=== PATIENT | female | born 2000 | race Two or more races ===

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

== ENCOUNTER 2020-10-22 17:47 | Emergency (ER) | payer OTHER ==
[~2020-10-22] VITALS: Ht 167.6 cm; Wt 82.1 kg
--- NOTE | 2020-10-22 18:54 | NUR ---
Patient awake alert noted able to ambulated to bathroom urine obtained and send to lab
[2020-10-22 19:22] LABS: BILIRUBIN,URINE SMALL (NEGATIVE); COLOR,URINE YELLOW (YELLOW); LEUKOCYTE ESTERASE ,URINE LARGE (NEGATIVE); NITRITE, URINE POSITIVE (NEGATIVE); PROTEIN,URINE TRACE mg/dl (NEGATIVE); UGLUCOSE NEGATIVE (NEGATIVE); UROBILINOGEN,URINE 0.2 EU/dL (0.2)
[2020-10-22 19:43] LABS: BACTERIA,URINE 4+ /HPF (None Seen); MUCUS,URINE Few /LPF (None Seen); WBC,URINE 21-50 /HPF (0-3)
[2020-10-22 19:50] LABS: BASOPHILS # (AUTO) 0.1 /CMM (0.0-0.2); BASOPHILS % (AUTO) 0.4 % (0.0-2.0); EOSINOPHILS % (AUTO) 0.4 % (0.0-6.0); HEMATOCRIT 41 % (33-45); HEMOGLOBIN 14.2 g/dL (11.5-14.8); LYMPHOCYTES # (AUTO) 2.8 /CMM (0.8-4.8); LYMPHOCYTES % (AUTO) 18.9 % (20.0-44.0); MEAN CORPUSCULAR HGB CONC 34 g/dl (31.0-36.0); MEAN CORPUSCULAR VOLUME 90 fL (82-100); MONOCYTES # (AUTO) 1.2 /CMM (0.1-1.30); MONOCYTES % (AUTO) 8.5 % (2.0-12.0); NEUTROPHILS # (AUTO) 10.5 /CMM (1.8-8.9); NEUTROPHILS % (AUTO) 71.8 % (43.0-81.0); PLATELET COUNT (AUTO) 312 /CMM (150-450); RED BLOOD CELL COUNT(AUTO) 4.58 MIL/uL (4.0-5.2); WHITE BLOOD COUNT (AUTO) 14.6 K/uL (4.3-11.0)
[2020-10-22] MEDS ORDERED: LORAZEPAM 1 MG TABLET ONE ×2 (19:56→21:19)
[2020-10-22] MEDS ORDERED: LORAZEPAM 1 MG TABLET PO ONE ×2 (20:00→21:00)
[2020-10-22 20:23] LABS: CALCIUM, SERUM 9.9 mg/dL (8.5-10.1); CARBON DIOXIDE 23 mmol/L (21-32); CHLORIDE 101 mmol/L (98-107); CREATININE 0.9 mg/dL (0.6-1.3); GLUCOSE 82 mg/dL (74-106); POTASSIUM 3.1 mmol/L (3.5-5.1); SODIUM SERUM 139 mmol/L (136-145); UREA NITROGEN, BLOOD 11 mg/dL (7-18)
[2020-10-22 20:31] LABS: ACETAMINOPHEN 0 ug/ml (10-30); ALANINE AMINOTRANSFERASE 36 U/L (12-78); ALBUMIN 4.3 g/dL (3.4-5.0); ALCOHOL, BLOOD < 3 mg/dL (0-0); ALKALINE PHOSPHATASE 86 U/L (46-116); ASPARTATE AMINOTRANSFERASE 40 U/L (15-37); BILIRUBIN,DIRECT 0.2 mg/dL (0.0-0.2); BILIRUBIN,TOTAL 1.2 mg/dL (0.2-1.0)
[2020-10-22] MEDS ORDERED: OLANZAPINE 10 MG VIAL IM ONE ×2 (20:51→21:00)
[2020-10-22] MEDS ORDERED: IV NS 0.9% 1,000 ML BAG IV ONE (22:00)
[2020-10-22] MEDS ORDERED: LORAZEPAM INJ 2 MG/ML VIAL IV ONE ×2 (22:00→23:00)
[2020-10-22] MEDS ORDERED: LORAZEPAM INJ 2 MG/ML VIAL ONE ×2 (22:08→23:46)
[2020-10-23] MEDS ORDERED: diphenhydrAMINE HCL 50 MG/ML VIAL ONE (00:29)
[2020-10-23] MEDS ORDERED: HALOPERIDOL LACTATE INJ 5 MG/ML VIAL ONE (00:29)
[2020-10-23] MEDS ORDERED: HALOPERIDOL LACTATE INJ 5 MG/ML VIAL IM ONE (00:30)
[2020-10-23] MEDS ORDERED: diphenhydrAMINE HCL 50 MG/ML VIAL IV ONE (00:30)
--- NOTE | 2020-10-23 04:31 | NUR ---
SPOKE WITH SAMANTA FROM [facility]. UNABLE TO ACCEPT PATIENT D/T NO SI/HI COMPLAINT. MD AWARE
--- NOTE | 2020-10-23 04:39 | NUR ---
pt was assisted with a bed sánchez. remained clean nad dry and comfortable. will cont to monitor
--- NOTE | 2020-10-23 07:42 | NUR ---
PATIENT ASLEEP BUT EASILY AROUSABLE. PATIENT STS SHE'S FEELING DEPRESSED. NO SUICIDAL PLANS AT THIS TIME, AND WANTS TO GO [facility]OL[facility] AT A [facility].
--- NOTE | 2020-10-23 08:10 | NUR ---
PATIENT WENT TO RESTROOM, AMBULATORY WITH STEADY GAIT. LINEN SHEET, CHANGED.
--- NOTE | 2020-10-23 09:20 | NUR ---
PER DEVIN FROM [facility], PATIENT DENIED ADMISSION, DOES NOT MEET THE CRITERIA.
--- NOTE | 2020-10-23 09:37 | NUR ---
THE PATIENT ALERT AND ORIENTED TO X. WITH EPISODES OF FORGETFULLNESS. DENIES PAIN. IN ROOM AIR AND DENIES SOB. RESPIRATION REGULAR AND UNLABORED. WILL CONTINUE TO MONITOR THE PATIENT.
[2020-10-23] MEDS ORDERED: CIPROFLOXACIN HCL 500 MG TABLET PO ONE (10:00)
[2020-10-23] MEDS ORDERED: CIPROFLOXACIN HCL 500 MG TABLET ONE (10:03)
--- NOTE | 2020-10-23 10:17 | NUR ---
RECEIVED A CALL FROM BRITTNEY MORALES FROM [facility] [phone] EXT [phone]
--- NOTE | 2020-10-23 10:44 | NUR ---
Dry Cell Assembly Machine Tender consult: financial services sales representative consult requested for substance use. Patient is a 20-year-old, female. SW met with patient at her bedside in the emergency department. Patient was alert and oriented x4. Patient presented malodorous, irritable, and lethargic. Per chart, patient was brought in by her father on 10/22/20 for a medical clearance. Patient stated that she is currently living with her father, Andriy Sarmiento, at [address] [place] [address]; [phone]. Upon consult, patient stated, Im tired, can I just sleep? Patient presented irritable and was resistant to speaking with SW. SW asked patient if she currently has a source of income and patient stated that she currently has no income. Patient receives some support from her father. SW asked patient about her history of substance use and patient stated, I dont want to talk about it. Per patients toxicology report patient is positive for amphetamine and cannabinoids. Patient stated that she has a history of Depression and Anxiety. Patient stated that she is currently not feeling suicidal or homicidal. SW provided substance use resources to the patient and patient accepted the resources stating that she would follow up independently. Patient stated that she may follow up with a sober living facility. Patient requested voluntary inpatient psychiatric hospitalization. Per patients chart, patient was denied from [facility]. SW will follow up with field coordinator, Nelson, , from [facility] to locate alternative options inpatient psychiatric hospitalization. PLAN: SW will follow up to locate alternative options for inpatient psychiatric hospitalization. SW will remain available as needed. Substance use resources provided included: [facility] Substance Abuse Self-Helpline ([facility]) ; [facility] [address] [facility] [address] ; [facility] [address] [facility] [address] ; [facility] [address] [facility] [address] ; [facility] [address] [facility] [address] ; [facility] [address] [facility] [address] ; [facility]; [facility] [place]; [facility] [place]; Alcoholics Anonymous -[facility]
--- NOTE | 2020-10-23 10:44 | NUR ---
[facility] AT BED[facility]IDE.
--- NOTE | 2020-10-23 17:47 | NUR ---
CALL BACK FROM [facility] FAXED TO [phone] REQUESTED
--- NOTE | 2020-10-23 17:48 | NUR ---
REPORT TO BE CALLED AT [phone]
--- NOTE | 2020-10-23 17:55 | NUR ---
CALL BACK FROM LORE,ACCEPTED BY DR KENNY TO [facility]
--- NOTE | 2020-10-23 17:57 | NUR ---
REPORT TO [phone]
--- NOTE | 2020-10-23 18:00 | NUR ---
[facility]ORT [facility] ETA 45 MINS PER JIMBO
--- NOTE | 2020-10-23 18:42 | NUR ---
THE PATIENT GOT TRANSFERED TO [facility] PER ARRANGEMENT AND INSTABLE CONDITION.
[2020-10-23 18:45] VITALS: BP 103/61
== END 2020-10-23 18:45 ==
LOC: ER 17:51
DX: R45.1 Restlessness and agitation (principal); F15.10 Other stimulant abuse, uncomplicated; N39.0 Urinary tract infection, site not specified; R00.0 Tachycardia, unspecified; Z20.822 Contact with and (suspected) exposure to COVID-19; Z82.49 Family history of ischemic heart disease and other diseases of the circulatory system; J45.909 Unspecified asthma, uncomplicated; F31.9 Bipolar disorder, unspecified; F17.200 Nicotine dependence, unspecified, uncomplicated; F43.10 Post-traumatic stress disorder, unspecified
CPT/HCPCS: 36415; 71045; 80048; 80076; 80143; 80307; 80320; 81001; 84484; 84703; 85025; 87086; 87426; 93005; 96361; 96372 ×2; 96374; 96376 ×2; 99285; C9803; J1200; J1630; J2060 ×2; J3490; J7030; G0480

== ENCOUNTER 2021-01-02 10:54 | Emergency (ER) | payer OTHER ==
[~2021-01-02] VITALS: Ht 167.6 cm; Wt 83.9 kg
--- NOTE | 2021-01-02 11:12 | NUR ---
patient came in to the er c/o anxiety, withdrawing from meth and inahalants, on room air, breathing evenly and unlabored. Connected to the monitor and pulse ox. Denies SI/HI. kept comfortable, will continue to monitor accordingly.
[2021-01-02] MEDS ORDERED: LORAZEPAM 1 MG TABLET ONE (11:20)
[2021-01-02] MEDS ORDERED: LORAZEPAM 1 MG TABLET PO ONE (11:30)
[2021-01-02 11:48] VITALS: BP 118/71
--- NOTE | 2021-01-02 11:49 | NUR ---
Patient given written and verbal discharge instructions. Patient verbalizes understanding of instructions. Patient is ambulatory with steady gait. Refuses offer of long-term placement. Patient given list of available shelters in surrounding area.
== END 2021-01-02 11:49 | disposition home or self-care (01) ==
LOC: ER 10:54
DX: F19.980 Other psychoactive substance use, unspecified with psychoactive substance-induced anxiety disorder (principal); F41.9 Anxiety disorder, unspecified; F18.10 Inhalant abuse, uncomplicated; F15.10 Other stimulant abuse, uncomplicated; J45.909 Unspecified asthma, uncomplicated; F43.10 Post-traumatic stress disorder, unspecified; F32.9 Major depressive disorder, single episode, unspecified; F17.200 Nicotine dependence, unspecified, uncomplicated; Z59.0 Homelessness

== ENCOUNTER 2021-02-15 20:33 | Emergency (ER) | payer OTHER ==
[~2021-02-15] VITALS: Ht 167.6 cm; Wt 81.6 kg
[2021-02-15] MEDS ORDERED: NALO4SPR NS (22:26)
[2021-02-15 22:45] LABS: BASOPHILS % (AUTO) 0.4 % (0.0-2.0); EOSINOPHILS % (AUTO) 2.4 % (0.0-6.0); HEMATOCRIT 39 % (33-45); HEMOGLOBIN 12.9 g/dL (11.5-14.8); LYMPHOCYTES # (AUTO) 1.8 K/uL (0.8-4.8); LYMPHOCYTES % (AUTO) 28.3 % (20.0-44.0); MEAN CORPUSCULAR HGB CONC 33 g/dl (31.0-36.0); MEAN CORPUSCULAR VOLUME 89 fL (82-100); MONOCYTES # (AUTO) 0.5 K/uL (0.1-1.30); MONOCYTES % (AUTO) 8.5 % (2.0-12.0); NEUTROPHILS # (AUTO) 3.8 K/uL (1.8-8.9); NEUTROPHILS % (AUTO) 60.4 % (43.0-81.0); PLATELET COUNT (AUTO) 279 K/uL (150-450); RED BLOOD CELL COUNT(AUTO) 4.41 MIL/uL (4.0-5.2); WHITE BLOOD COUNT (AUTO) 6.4 K/uL (4.3-11.0)
[2021-02-15 22:56] LABS: BILIRUBIN,URINE Negative (NEGATIVE); COLOR,URINE YELLOW (YELLOW); LEUKOCYTE ESTERASE ,URINE Negative (NEGATIVE); NITRITE, URINE Negative (NEGATIVE); PH,URINE 5.5 (5.0-8.0); PROTEIN,URINE Negative (NEGATIVE); UGLUCOSE Negative (NEGATIVE); UROBILINOGEN,URINE 0.2 EU/dL (0.2)
[2021-02-15 22:58] LABS: CALCIUM, SERUM 9.1 mg/dL (8.5-10.1); CARBON DIOXIDE 30 mmol/L (21-32); CHLORIDE 106 mmol/L (98-107); CREATININE 0.8 mg/dL (0.6-1.3); GLUCOSE 98 mg/dL (74-106); POTASSIUM 3.9 mmol/L (3.5-5.1); SODIUM SERUM 143 mmol/L (136-145); UREA NITROGEN, BLOOD 19 mg/dL (7-18)
--- NOTE | 2021-02-15 23:02 | NUR ---
BOY FRIEND, SANG,
[2021-02-15 23:13] LABS: ALANINE AMINOTRANSFERASE 21 U/L (12-78); ALBUMIN 3.7 g/dL (3.4-5.0); ALKALINE PHOSPHATASE 80 U/L (46-116); ASPARTATE AMINOTRANSFERASE 16 U/L (15-37); BILIRUBIN,DIRECT 0.1 mg/dL (0.0-0.2); BILIRUBIN,TOTAL 0.3 mg/dL (0.2-1.0); TOTAL PROTEIN, SERUM 8.1 g/dL (6.4-8.2)
[2021-02-15 23:15] LABS: ACETAMINOPHEN 0 ug/ml (10-30); ALCOHOL, BLOOD < 3 mg/dL (0-0)
--- NOTE | 2021-02-15 23:46 | NUR ---
PT AAOX4. BIBSELF FOR C/O DEPRESSION, DETOXING FROM FENTANYL AND METH. PLACED IN BED, ER MD AT BEDSIDE FOR EVAL. AWAITING ORDERS.
--- NOTE | 2021-02-16 | NUR ---
FACESHEET AND CLINICALS FAXED TO [facility].
[2021-02-16 00:16] LABS: BACTERIA,URINE Moderate /HPF (None Seen); WBC,URINE 21-50 /HPF (0-3)
[2021-02-16 00:17] LABS: MUCUS,URINE Few /LPF (None Seen); SQUAMOUS EPITHELIAL CELL,UR Moderate /HPF (None Seen)
--- NOTE | 2021-02-16 07:54 | NUR ---
FATHER: [phone]
--- NOTE | 2021-02-16 09:50 | NUR ---
SANG ZUNIGA, , [phone] CALLED FOR UPDATE
[2021-02-16] MEDS ORDERED: CEPHALEXIN MONOHYDRATE 500 MG CAPSULE PO ONE ×2 (09:56→12:28)
[2021-02-16] MEDS: CEPHALEXIN MONOHYDRATE 500 MG CAPSULE PO SCH ×2 (09:57→12:48)
--- NOTE | 2021-02-16 10:45 | NUR ---
FAXED HCG AND LABS TO [facility]
--- NOTE | 2021-02-16 10:53 | NUR ---
SPOKE WITH KARELY. PT ACCEPTED AT [facility], [facility]. CALL [phone] EXT [phone] FOR REPORT AND ROOM ASSIGNMENT
[2021-02-16 11:00] VITALS: BP 137/79
--- NOTE | 2021-02-16 11:25 | NUR ---
REPORT GIVEN TO DHARMESH GAFFNEY FOR [facility]. OK TO SEND PATIENT ANYTIME.
--- NOTE | 2021-02-16 11:31 | NUR ---
CALLED [facility] FOR BLS TRANSFER TO [facility]. ETA IS 1 HOUR.
--- NOTE | 2021-02-16 12:48 | NUR ---
PATIENT TRANSFERRED TO [facility] IN STABLE CONDITION.
== END 2021-02-16 12:49 ==
LOC: ER 20:38
DX: F15.10 Other stimulant abuse, uncomplicated (principal); F11.10 Opioid abuse, uncomplicated; R45.851 Suicidal ideations; Z20.822 Contact with and (suspected) exposure to COVID-19; Z59.0 Homelessness; R00.0 Tachycardia, unspecified; J45.909 Unspecified asthma, uncomplicated; F31.9 Bipolar disorder, unspecified; F41.9 Anxiety disorder, unspecified; F43.10 Post-traumatic stress disorder, unspecified
CPT/HCPCS: 36415; 80048; 80076; 80143; 80307; 80320; 81001; 84703; 85025; 87086; 87426; 99285; C9803; G0480

== ENCOUNTER 2021-04-28 10:45 | Emergency (ER) | payer OTHER ==
[~2021-04-28] VITALS: Ht 167.6 cm; Wt 81.6 kg
[~2021-04-28 10:45] MED LIST: NALO4SPR NS
--- NOTE | 2021-04-28 10:45 | NUR ---
BIBS C/O SORES IN MOUTH [id number]; 7/10 ON PAIN SCALE. PT SENT TO ER BED 2 AWAITING MD DOMINGUEZ.
[2021-04-28 10:52] VITALS: BP 132/81
[2021-04-28] MEDS ORDERED: VALA10002 PO (12:09)
[2021-04-28] MEDS ORDERED: MAG30ORA GT (12:09)
--- NOTE | 2021-04-28 12:19 | NUR ---
Patient discharged to home in stable condition. Written and verbal after care instructions given. Patient verbalizes understanding of instruction.
== END 2021-04-28 12:21 | disposition home or self-care (01) ==
LOC: ER 10:51
DX: K14.0 Glossitis (principal); J45.909 Unspecified asthma, uncomplicated; F43.10 Post-traumatic stress disorder, unspecified; F32.9 Major depressive disorder, single episode, unspecified; F41.9 Anxiety disorder, unspecified; F17.200 Nicotine dependence, unspecified, uncomplicated; Z88.0 Allergy status to penicillin; Z59.00 Homelessness unspecified; Z79.899 Other long term (current) drug therapy

== ENCOUNTER 2023-08-05 09:50 | Emergency (ER) | payer MEDICAID, OTHER ==
[~2023-08-05] VITALS: Ht 167.6 cm; Wt 80.3 kg
[~2023-08-05 09:50] MED LIST changes: +MAG30ORA GT; +VALA10002 PO
[2023-08-05 10:57] LABS: BASOPHILS % (AUTO) 0.2 % (0.0-2.0); EOSINOPHILS # (AUTO) 0.1 K/uL (0.0-0.7); EOSINOPHILS % (AUTO) 0.6 % (0.0-6.0); HEMATOCRIT 37 % (33-45); HEMOGLOBIN 12.5 g/dL (11.5-14.8); LYMPHOCYTES # (AUTO) 1.2 K/uL (0.8-4.8); LYMPHOCYTES % (AUTO) 13.7 % (20.0-44.0); MEAN CORPUSCULAR HEMOGLOBIN 31 PG (26.0-33.0); MEAN CORPUSCULAR HGB CONC 34 g/dl (31.0-36.0); MEAN CORPUSCULAR VOLUME 91 fL (82-100); MONOCYTES # (AUTO) 0.4 K/uL (0.1-1.30); MONOCYTES % (AUTO) 4.9 % (2.0-12.0); NEUTROPHILS % (AUTO) 80.6 % (43.0-81.0); PLATELET COUNT (AUTO) 215 K/uL (150-450); RED CELL DISTRIBUTION WIDTH 13.2 % (11.5-15.0); WHITE BLOOD COUNT (AUTO) 8.7 K/uL (4.3-11.0)
[2023-08-05 11:08] LABS: APPEARANCE,URINE CLEAR (CLEAR); BILIRUBIN,URINE NEGATIVE (NEGATIVE); BLOOD, URINE NEGATIVE Ery/uL (NEGATIVE); COLOR,URINE YELLOW (YELLOW); KETONES,URINE NEGATIVE (NEGATIVE); LEUKOCYTE ESTERASE ,URINE NEGATIVE (NEGATIVE); NITRITE, URINE NEGATIVE (NEGATIVE); PH,URINE 6.5 (5.0-8.0); PREGNANCY TEST URINE QUAL NEGATIVE (NEGATIVE); PROTEIN,URINE NEGATIVE (NEGATIVE); UGLUCOSE NEGATIVE (NEGATIVE); UROBILINOGEN,URINE 0.2 EU/dL (0.2)
[2023-08-05 11:10] LABS: CALCIUM, SERUM 8.9 mg/dL (8.5-10.1); CARBON DIOXIDE 25 mmol/L (21-32); CHLORIDE 104 mmol/L (98-107); CREATININE 0.5 mg/dL (0.6-1.3); GLUCOSE 95 mg/dL (74-106); POTASSIUM 3.8 mmol/L (3.5-5.1); SODIUM SERUM 138 mmol/L (136-145); UREA NITROGEN, BLOOD 13 mg/dL (7-18)
[2023-08-05 11:19] LABS: AMPHETAMINE, URINE NEGATIVE (NEGATIVE); BARBITURATE, URINE NEGATIVE (NEGATIVE); BENZODIAZEPINE, URINE NEGATIVE (NEGATIVE); COCCAINE, URINE NEGATIVE (NEGATIVE); OPIATE, URINE NEGATIVE (NEGATIVE); PHENCYCLIDINE SCREEN,URINE NEGATIVE (NEGATIVE)
[2023-08-05 11:20] LABS: CANNABINOID, URINE POSITIVE (NEGATIVE)
[2023-08-05 11:22] LABS: ALANINE AMINOTRANSFERASE 28 U/L (12-78); ALBUMIN 2.8 g/dL (3.4-5.0); ALCOHOL, BLOOD 3 mg/dL (0-10); ALKALINE PHOSPHATASE 38 U/L (46-116); ASPARTATE AMINOTRANSFERASE 14 U/L (15-37); BILIRUBIN,DIRECT 0.1 mg/dL (0.0-0.2); BILIRUBIN,TOTAL 0.2 mg/dL (0.2-1.0); SALICYLATE 1.8 mg/dL (2.8-20.0); TOTAL PROTEIN, SERUM 6.4 g/dL (6.4-8.2)
[2023-08-05 11:23] LABS: ACETAMINOPHEN <10 ug/ml (10-30)
[2023-08-05 12:41] VITALS: BP 120/67; TEMP 98.1; O2SAT 99
== END 2023-08-05 14:28 ==
LOC: ER 09:54
DX: R45.851 Suicidal ideations (principal); F32.9 Major depressive disorder, single episode, unspecified; F20.9 Schizophrenia, unspecified; F41.9 Anxiety disorder, unspecified; J45.909 Unspecified asthma, uncomplicated; Z88.0 Allergy status to penicillin; Z59.00 Homelessness unspecified; Z79.899 Other long term (current) drug therapy; Z20.822 Contact with and (suspected) exposure to COVID-19
CPT/HCPCS: 36415; 80048-TC; 80076-TC; 84703-TC; 85025-TC; G0480

== ENCOUNTER 2023-08-19 13:12 | Emergency (ER) | payer MEDICAID ==
[~2023-08-19] VITALS: Ht 167.6 cm; Wt 80.3 kg
[2023-08-19 15:32] VITALS: BP 129/72; TEMP 99.3; O2SAT 96
[2023-08-19 15:52] LABS: BASOPHILS % (AUTO) 0.3 % (0.0-2.0); EOSINOPHILS % (AUTO) 0.1 % (0.0-6.0); HEMATOCRIT 35 % (33-45); HEMOGLOBIN 11.6 g/dL (11.5-14.8); LYMPHOCYTES # (AUTO) 1.3 K/uL (0.8-4.8); LYMPHOCYTES % (AUTO) 11.9 % (20.0-44.0); MEAN CORPUSCULAR HEMOGLOBIN 30 PG (26.0-33.0); MEAN CORPUSCULAR HGB CONC 33 g/dl (31.0-36.0); MEAN CORPUSCULAR VOLUME 91 fL (82-100); MONOCYTES # (AUTO) 0.5 K/uL (0.1-1.30); NEUTROPHILS # (AUTO) 8.9 K/uL (1.8-8.9); NEUTROPHILS % (AUTO) 82.7 % (43.0-81.0); PLATELET COUNT (AUTO) 223 K/uL (150-450); RED BLOOD CELL COUNT(AUTO) 3.85 MIL/uL (4.0-5.2); RED CELL DISTRIBUTION WIDTH 13.4 % (11.5-15.0); WHITE BLOOD COUNT (AUTO) 10.8 K/uL (4.3-11.0)
[2023-08-19 15:55] LABS: APPEARANCE,URINE Slightly Cloudy (CLEAR); BILIRUBIN,URINE Negative (NEGATIVE); BLOOD, URINE Negative Ery/uL (NEGATIVE); COLOR,URINE LIGHT YELLOW (YELLOW); KETONES,URINE Negative (NEGATIVE); LEUKOCYTE ESTERASE ,URINE Negative (NEGATIVE); NITRITE, URINE Negative (NEGATIVE); PROTEIN,URINE Negative (NEGATIVE); UGLUCOSE Negative (NEGATIVE); UROBILINOGEN,URINE 0.2 EU/dL (0.2)
[2023-08-19 15:59] LABS: CALCIUM, SERUM 8.5 mg/dL (8.5-10.1); CARBON DIOXIDE 25 mmol/L (21-32); CHLORIDE 104 mmol/L (98-107); CREATININE 0.5 mg/dL (0.6-1.3); GLUCOSE 96 mg/dL (74-106); POTASSIUM 3.6 mmol/L (3.5-5.1); SODIUM SERUM 137 mmol/L (136-145); UREA NITROGEN, BLOOD 15 mg/dL (7-18)
[2023-08-19 16:00] LABS: PREGNANCY TEST URINE QUAL NEGATIVE (NEGATIVE)
[2023-08-19 16:01] LABS: AMPHETAMINE, URINE NEGATIVE (NEGATIVE); BARBITURATE, URINE NEGATIVE (NEGATIVE); BENZODIAZEPINE, URINE NEGATIVE (NEGATIVE); COCCAINE, URINE NEGATIVE (NEGATIVE); OPIATE, URINE NEGATIVE (NEGATIVE); PHENCYCLIDINE SCREEN,URINE NEGATIVE (NEGATIVE)
[2023-08-19 16:02] LABS: CANNABINOID, URINE POSITIVE (NEGATIVE)
[2023-08-19 16:05] LABS: ACETAMINOPHEN 0 ug/ml (10-30); ALANINE AMINOTRANSFERASE 17 U/L (12-78); ALBUMIN 3.1 g/dL (3.4-5.0); ALCOHOL, BLOOD < 3 mg/dL (0-10); ALKALINE PHOSPHATASE 34 U/L (46-116); ASPARTATE AMINOTRANSFERASE 12 U/L (15-37); BILIRUBIN,DIRECT 0.1 mg/dL (0.0-0.2); BILIRUBIN,TOTAL 0.3 mg/dL (0.2-1.0); SALICYLATE 2.1 mg/dL (2.8-20.0); TOTAL PROTEIN, SERUM 6.7 g/dL (6.4-8.2)
[2023-08-19] MEDS ORDERED: LORAZEPAM 1 MG TABLET ONE (16:42)
[2023-08-19] MEDS: LORAZEPAM 1 MG TABLET PO ONE (16:46)
== END 2023-08-19 23:43 ==
LOC: ER 13:16
DX: R45.851 Suicidal ideations (principal); J45.909 Unspecified asthma, uncomplicated; F41.9 Anxiety disorder, unspecified; F31.9 Bipolar disorder, unspecified; R10.2 Pelvic and perineal pain; Z79.899 Other long term (current) drug therapy; Z20.822 Contact with and (suspected) exposure to COVID-19; Z88.0 Allergy status to penicillin
CPT/HCPCS: 36415; 80048-TC; 80076-TC; 84703-TC; 85025-TC; G0480